=== PATIENT | female | born 1995 | race Caucasian/White ===

== ENCOUNTER → 2022-07-16 11:36 | Outpatient (BNVA) | payer OTHER, SELFPAY | PROVIDERS: PCP Family Medicine; Visit Provider Internal Medicine Rheumatology | DX: Z79.899 Other long term (current) drug therapy (principal); R76.8 Other specified abnormal immunological findings in serum; R53.83 Other fatigue | CPT/HCPCS: 36415; 80076; 82306; 82565; 82728; 83540; 83550; 85025; 85651; 86140; 86160; 86162; 86235; 86255; 86376 ==